=== PATIENT | female | born 1995 | race Caucasian/White ===

== ENCOUNTER 2018-10-28 15:31 | Emergency (ER) | payer OTHER ==
[~2018-10-28] VITALS: Ht 170.2 cm; Wt 156.0 kg
== END 2018-10-28 22:55 | disposition home or self-care (01) ==
LOC: ER 15:31
DX: B34.9 Viral infection, unspecified (principal); B09 Unspecified viral infection characterized by skin and mucous membrane lesions

== ENCOUNTER 2019-04-11 19:06 | Emergency (ER) | payer OTHER ==
[~2019-04-11] VITALS: Ht 170.2 cm; Wt 163.3 kg
== END 2019-04-11 22:39 | disposition home or self-care (01) ==
LOC: ER 19:06
DX: S80.02XA Contusion of left knee, initial encounter (principal); W18.09XA Striking against other object with subsequent fall, initial encounter; Y93.E5 Activity, floor mopping and cleaning; Y92.018 Other place in single-family (private) house as the place of occurrence of the external cause; Y99.8 Other external cause status

== ENCOUNTER 2020-10-08 01:02 | Emergency (ER) | payer OTHER ==
[~2020-10-08] VITALS: Ht 170.2 cm; Wt 145.1 kg
[2020-10-08] MEDS ORDERED: ZANTAC25 MG/1 ML (01:15)
[2020-10-08] MEDS ORDERED: CIPRO500 MG PO (05:30)
[2020-10-08] MEDS ORDERED: PEPCID20 MG PO (05:30)
[2020-10-08] MEDS ORDERED: ACETAMINOPHEN650 MG PO (05:30)
== END 2020-10-08 05:51 | disposition home or self-care (01) ==
LOC: ER 01:02
DX: K80.80 Other cholelithiasis without obstruction (principal); K76.0 Fatty (change of) liver, not elsewhere classified; Z03.818 Encounter for observation for suspected exposure to other biological agents ruled out; R10.13 Epigastric pain; R10.11 Right upper quadrant pain

== ENCOUNTER 2021-05-02 15:49 | Emergency (ER) | payer OTHER ==
[~2021-05-02] VITALS: Ht 172.7 cm; Wt 145.1 kg
[~2021-05-02 15:49] MED LIST: ACETAMINOPHEN650 MG PO; CIPRO500 MG PO; PEPCID20 MG PO; ZANTAC25 MG/1 ML
[2021-05-02] MEDS ORDERED: CIPRO500 MG PO (21:25)
== END 2021-05-02 21:32 | disposition home or self-care (01) ==
LOC: ER 15:49
DX: K80.20 Calculus of gallbladder without cholecystitis without obstruction (principal)

== ENCOUNTER 2022-01-09 06:44 | Emergency (ER) | payer OTHER ==
[~2022-01-09] VITALS: Ht 172.7 cm; Wt 131.5 kg
== END 2022-01-09 13:10 | disposition home or self-care (01) ==
LOC: ER 06:44
DX: R10.13 Epigastric pain (principal); K80.20 Calculus of gallbladder without cholecystitis without obstruction

== ENCOUNTER 2022-09-06 05:03 | Inpatient (IN) | payer OTHER ==
[~2022-09-06] VITALS: Ht 170.2 cm; Wt 122.5 kg
--- NOTE | 2022-09-06 05:25 | NUR ---
SE RECIBE PTE ALERTA Y ORIENTADA X3 LA CUAL REFIERE TENER DOLOR ABDOMINAL Y VOMITOS DESDE LAS 3 AM
--- NOTE | 2022-09-06 05:54 | NUR ---
SE ORIENTA PTE SOBRE TX A SEGUIR, EL CUAL REFIERE ENTENDER. SE COLECTAN MUESTRAS Y SE CANALIZA PTE UTILIZANDO MEDIDAS ASEPTICAS. SE ADM. MEDICAMENTOS MARY ORDEN MEDICA.
--- NOTE | 2022-09-06 06:09 | NUR ---
SE NOTIFICA SONOGRAMA ABDOMINAL A LA SONOGRAFISTA HUNG A LAS 6:05AM.
--- NOTE | 2022-09-06 07:16 | NUR ---
PATIENT IS RECIEVED ALERT AND IN STABLE CONDITIONS. PATIENT IS IN BED ALONGSIDE FAMILY MEMBER. PATIENT HAS IV FLUIDS FLOWING ADEQUATELY AND HAS A CLEAN VENIPUNCTURE. PATIENT HAS PENDING MEDICAL REEVALUATION.
== END 2022-09-12 13:05 | disposition home or self-care (01) | DRG 418 ==
LOC: ER 05:03 → MEDI 20:05
PROVIDERS: Surgery; ADMIT Internal Medicine; ATTEND Internal Medicine
PROC: BW40ZZZ Ultrasonography of Abdomen (ICD-10-PCS; 2022-09-06)
PROC: B246ZZZ Ultrasonography of Right and Left Heart (ICD-10-PCS; 2022-09-06)
PROC: 0FT44ZZ Resection of Gallbladder, Percutaneous Endoscopic Approach (ICD-10-PCS; principal; 2022-09-10 15:00)
DX: K80.10 Calculus of gallbladder with chronic cholecystitis without obstruction (principal); I27.0 Primary pulmonary hypertension; K29.70 Gastritis, unspecified, without bleeding; Z20.822 Contact with and (suspected) exposure to COVID-19; Z86.79 Personal history of other diseases of the circulatory system